=== PATIENT | female | born 1960 | race Caucasian/White ===

== ENCOUNTER 2022-06-01 17:22 | Emergency (ER) | payer MEDICAID ==
[~2022-06-01] VITALS: Ht 160 cm; Wt 68.0 kg
--- NOTE | 2022-06-01 17:29 | NUR ---
[facility] to ER, mechanical fall while shooping at [facility].. denies KO C/O right shoulder and upper arm pain
[2022-06-01] MEDS ORDERED: KETOROLAC TROMETHAMINE 15 MG/ML VIAL ONE (18:05)
[2022-06-01] MEDS ORDERED: HYDROCODONE/APAP 5/325MG TABLET ONE (18:05)
--- NOTE | 2022-06-01 18:20 | NUR ---
SPLINT APPLIED RIGHT ARM
[2022-06-01] MEDS ORDERED: KETOROLAC TROMETHAMINE INJ 60 MG/2 ML VIAL IM ONE (18:30)
[2022-06-01] MEDS ORDERED: HYDROCODONE/APAP 5/325MG TABLET PO ONE (18:30)
[2022-06-01] MEDS ORDERED: NAPR-1192 PO (19:54)
[2022-06-01 20:25] VITALS: BP 154/80
--- NOTE | 2022-06-01 20:27 | NUR ---
Patient discharged to home in stable condition. Written and verbal after care instructions given. Patient verbalizes understanding of instruction. Rx given. sling on right shoulder for immobilization. wheelchaired out. leaving with family in private vehicle.
== END 2022-06-01 20:28 | disposition home or self-care (01) ==
LOC: ER 17:25
DX: S42.211A Unspecified displaced fracture of surgical neck of right humerus, initial encounter for closed fracture (principal); W18.30XA Fall on same level, unspecified, initial encounter; Y93.89 Activity, other specified; Y92.89 Other specified places as the place of occurrence of the external cause; Y99.8 Other external cause status
CPT/HCPCS: 99285; 72125; 96372; 73080; 73030; 70450; J1885